=== PATIENT | female | born 1975 | race Caucasian/White ===

== ENCOUNTER 2021-09-06 12:44 | Emergency (ER) | payer OTHER ==
[~2021-09-06] VITALS: Ht 162.6 cm; Wt 59.0 kg
[2021-09-06 12:54] VITALS: BP 145/98
[2021-09-06] MEDS ORDERED: FLEXERIL PO (14:21)
== END 2021-09-06 14:37 | disposition home or self-care (01) ==
LOC: M.ERS 12:44
DX: S46.912A Strain of unspecified muscle, fascia and tendon at shoulder and upper arm level, left arm, initial encounter (principal); J02.9 Acute pharyngitis, unspecified; F17.210 Nicotine dependence, cigarettes, uncomplicated; Z98.890 Other specified postprocedural states; Z98.51 Tubal ligation status; X50.1XXA Overexertion from prolonged static or awkward postures, initial encounter; Y93.89 Activity, other specified; Y92.810 Car as the place of occurrence of the external cause; Y99.8 Other external cause status

== ENCOUNTER 2021-10-29 13:47 | Emergency (ER) | payer OTHER ==
[~2021-10-29] VITALS: Ht 162.6 cm; Wt 63.5 kg
[~2021-10-29 13:47] MED LIST: FLEXERIL PO
[2021-10-29 14:26] LABS: INFLUENZA A ANTIGEN Negative (Negative); INFLUENZA B ANTIGEN Negative (Negative)
[2021-10-29 15:05] VITALS: BP 114/80
== END 2021-10-29 15:06 | disposition home or self-care (01) ==
LOC: M.ERS 13:47
PROVIDERS: Nurse Practitioner Family
DX: U07.1 COVID-19 (principal); Z98.51 Tubal ligation status

== ENCOUNTER 2021-12-19 01:27 | Emergency (ER) | payer OTHER ==
[~2021-12-19] VITALS: Ht 162.6 cm; Wt 61.2 kg
[2021-12-19 02:33] VITALS: BP 132/78
== END 2021-12-19 02:34 | disposition home or self-care (01) ==
LOC: M.ERS 01:27
DX: T20.20XA Burn of second degree of head, face, and neck, unspecified site, initial encounter (principal); T31.0 Burns involving less than 10% of body surface; Z98.51 Tubal ligation status